=== PATIENT | male | born 1985 | race Caucasian/White ===

== ENCOUNTER 2023-07-19 08:41 | Emergency (ER) | payer OTHER ==
[~2023-07-19] VITALS: Ht 175.3 cm; Wt 68.0 kg
[2023-07-19 08:52] VITALS: BP 134/91; O2SAT 100
[2023-07-19] MEDS ORDERED: TETANUS, DIPHTHERIA, PERTUSSIS VAC/PF 0.5ML (>10YR OLD) IM ONE (09:45)
[2023-07-19 09:57] VITALS: PULSE 72; RESP 20; TEMP 97.7
== END 2023-07-19 10:00 | disposition home or self-care (01) ==
LOC: ER 09:20
DX: S61.411A Laceration without foreign body of right hand, initial encounter (principal); W45.8XXA Other foreign body or object entering through skin, initial encounter; Y93.89 Activity, other specified; Y92.89 Other specified places as the place of occurrence of the external cause; Y99.8 Other external cause status
CPT/HCPCS: 90715; 90471; 99283; Z7610

== ENCOUNTER 2023-09-09 06:48 | Emergency (ER) | payer OTHER ==
[~2023-09-09] VITALS: Ht 170.2 cm; Wt 77.0 kg
[2023-09-09 07:08] VITALS: TEMP 98.5; O2SAT 100
[2023-09-09 10:45] VITALS: BP 135/88; PULSE 89; RESP 16
[2023-09-09] MEDS ORDERED: KETOROLAC 30MG/ML VIAL IM ONE (10:45)
[2023-09-09] MEDS ORDERED: NAPR-1176 MT (13:17)
== END 2023-09-09 13:31 | disposition home or self-care (01) ==
LOC: ER 06:48
DX: G57.10 Meralgia paresthetica, unspecified lower limb (principal)
CPT/HCPCS: 93971; 96372; 99285; J1885; Z7610

== ENCOUNTER 2024-01-07 15:28 | Emergency (ER) | payer OTHER ==
[~2024-01-07] VITALS: Ht 165.1 cm; Wt 64.0 kg
[~2024-01-07 15:28] MED LIST: NAPR-1176 MT
[2024-01-07 15:34] VITALS: O2SAT 99
[2024-01-07 17:12] LABS: BASOPHILS % 0.8 % (0.0-2.0); EOSINOPHILS % 2.9 % (0.0-5.0); HEMATOCRIT. 42.7 % (42.0-52.0); HEMOGLOBIN. 14.6 g/dL (14.0-18.0); LYMPHOCYTES % 30.1 % (20.0-50.0); MEAN CORPUSCULAR HEMOGLOBIN 32.3 pg (28.0-32.0); MEAN CORPUSCULAR HGB CONC 34.3 g/dL (31.0-37.0); MEAN CORPUSCULAR VOLUME 94.2 fL (80.0-94.0); MEAN PLATELET VOLUME 8.3 fl (7.4-10.4); MONOCYTES % 10.7 % (2.0-8.0); NEUTROPHILS % 55.5 % (40.0-76.0); PLATELET 234 x1000/uL (130-400); RED BLOOD CELL COUNT 4.53 mill/uL (4.7-6.1); RED CELL DISTRIBUTION WIDTH 13.3 % (11.6-14.6); WHITE BLOOD COUNT 5.6 x1000/uL (4.5-11.0)
[2024-01-07 17:27] LABS: ALANINE AMINOTRANSFERASE 21 IU/L (10-49); ALBUMIN 4.6 g/dL (3.2-4.8); ASPARTATE AMINOTRANSFERASE 28 IU/L (<34); BILIRUBIN TOTAL 0.6 mg/dL (0.1-1.0); CARBON DIOXIDE 31 mEq/L (21-32); CHLORIDE 104 mEq/L (98-107); GLUCOSE 128 mg/dL (70-105); POTASSIUM 4.2 mEq/L (3.5-5.1); PROTEIN TOTAL 7.3 g/dL (6.0-8.3); SODIUM 137 mEq/L (136-145); TROPONIN I HIGH SENSITIVITY < 4 ng/L (3.0-53); UREA NITROGEN BLOOD 12 mg/dL (9-23)
[2024-01-07 22:12] LABS: TROPONIN I HIGH SENSITIVITY < 4 ng/L (3.0-53)
[2024-01-07] MEDS ORDERED: MAG355OR21 MT (22:44)
[2024-01-07 23:05] VITALS: BP 147/87; PULSE 72; RESP 12; TEMP 97.5
== END 2024-01-07 23:09 | disposition home or self-care (01) ==
LOC: ER 15:28
DX: R07.89 Other chest pain (principal)
CPT/HCPCS: 36415; 71045; 80053; 84484; 85025; 85379; 93005; 99285